=== PATIENT | male | born 1965 | race Caucasian/White ===

== ENCOUNTER 2020-02-22 11:45 | Emergency (ER) | payer BC ==
[2020-02-22] MEDS ORDERED: NORMAL SALINE 1000 ML 1,000 ML IV ONE (12:51)
[2020-02-22] MEDS ORDERED: DEXTROSE 5%-WATER 1000 ML 1,000 ML with SODIUM BICARBONATE 50 MEQ IV PRN ×2 (12:53)
[2020-02-22] MEDS ORDERED: ACTIVATED CHARCOAL 25 GM BOTTLE PO ONE (12:55)
[2020-02-22] MEDS ORDERED: DEXTROSE 5%-WATER 1000 ML 1,000 ML with SODIUM BICARBONATE 150 MEQ IV PRN ×2 (12:58)
--- NOTE | 2020-02-22 13:04 | ER Document Report ---
ED General - Related Data Home Medications: aspirin - General Chief Complaint: Hand Swelling Stated Complaint: RIGHT HAND SWELLING Time Seen by Provider: 02/22/20 12:40 Primary Care Provider: EL ARANA [Primary Care Provider] - Follow up as needed - HPI Notes: 54-year-old male presents initially with right hand pain. Patient states he has had several months of right hand pain, recently saw a doctor who believes it might be gout. Patient states that he has had multiple areas of joint pains over the past couple years. He states every couple months he will have pain in his shoulders, hips, hands, and ankles. All of these joints will become swollen and painful. He previously was on narcotic pain medication while he lived in [place], he has not taken any opioids since he has been in [place] since August. Instead, patient has been taking marked doses of aspirin. He states that in the past 6 days he has gone through 2 bottles of 325 mg aspirin. He typically takes 12 tabs at a time, usually about 4 times a day. He believes that he took 24 yesterday and over 30 the day before. He states he only took 6 today, consumed around 11 AM. He states that 3 to 4 days ago he had some ringing in his ears which prompted him to decrease his aspirin intake. He states that today is the first day his hand has felt good enough that he could drive himself to the emergency department. He denies nausea, vomiting or abdominal pain. He states that he has been urinating. He occasionally will use marijuana but it has been sometime since last use. He denies alcohol intake. He has a history of hypertension and diabetes. (CHE ZEPEDA) - Related Data Allergies/Adverse Reactions: ibuprofen Allergy (Verified 02/22/20 13:16) Past Medical History - General Information source: Patient - Social History Smoking Status: Current Every Day Smoker Family History: Reviewed & Not Pertinent Patient has homicidal ideation: No - Past Medical History Cardiac Medical History: Reports: Hx Hypertension Endocrine Medical History: Reports: Hx Diabetes Mellitus Type 2 Review of Systems - Review of Systems Constitutional: No symptoms reported EENT: See HPI Cardiovascular: No symptoms reported Respiratory: No symptoms reported Gastrointestinal: No symptoms reported Genitourinary: No symptoms reported Male Genitourinary: No symptoms reported Musculoskeletal: Joint pain, Joint swelling Skin: No symptoms reported Hematologic/Lymphatic: No symptoms reported Neurological/Psychological: No symptoms reported Physical Exam - General General appearance: Appears well, Alert In distress: None - HEENT Head: Normocephalic, Atraumatic Extraocular movements intact: Yes Pupils: PERRL Mucous membranes: Normal - Respiratory Breath sounds: Normal - Cardiovascular Rhythm: Regular Heart sounds: Normal auscultation - Abdominal Distension: No distension Tenderness: Nontender - Extremities General upper extremity: Normal ROM General lower extremity: Normal ROM - Neurological Neuro grossly intact: Yes Cognition: Normal Orientation: AAOx4 Speech: Normal Cranial nerves: Normal Cerebellar coordination: Normal Motor strength normal: LUE, RUE, LLE, RLE - Psychological Associated symptoms: Normal affect - Skin Skin Temperature: Warm - Vital signs Vitals: Temp Pulse Resp BP Pulse Ox 98.7 F 70 18 190/101 H 97 02/22/20 12:30 02/22/20 12:30 02/22/20 12:30 02/22/20 12:30 02/22/20 12:30 Course - Laboratory Result Diagrams: 02/22/20 13:18 02/22/20 13:18 - Diagnostic Test Radiology reviewed: Image reviewed, Reports reviewed - Re-evaluation Re-evalutation: 54-year-old male here with right hand pain/joint swelling. Based on his description of polyarthralgias, it sounds like he probably has rheumatoid arthritis rather than gout. However most importantly is the fact that he has been taking massive doses of aspirin over the past few days. States his maximal dosing has been 12 tabs of 325 mg 4 times a day, which equates to 15.6 g daily. Today he has only taken 1950 mg. He is alert, mentating appropriately, currently no signs of cerebral edema. Through the triage process, poison control was contacted and he was ordered a dose of activated charcoal given his recent ingestion. Will start bicarb infusion, will monitor electrolytes and ur inary pH closely. I am anticipating a metabolic acidosis. Initial level ordered and will continue to trend every 2 hours until peak. 02/22/20 14:15 Initial labs have resulted. He has normal pH on VBG, bicarb is only slightly low at 20. His creatinine is within normal limits. Additionally his salicylate level is less than 30 mg/dL. Feel that it is reasonable to keep patient on a bicarb and recheck a level in 2 hours, if the level decreases then potentially he may be going home, if increases admitted. Updated patient on this plan. 02/22/20 16:50 Patient signed out pending repeat salicylate level and BMP. (CHE ZEPEDA) - Vital Signs Vital signs: Temp Pulse Resp BP Pulse Ox 98.0 F 70 20 173/114 H 97 02/22/20 14:21 02/22/20 12:30 02/22/20 14:21 02/22/20 14:21 02/22/20 14:21 - Laboratory Laboratory results interpreted by me: 02/22/20 02/22/20 02/22/20 13:18 13:18 13:40 WBC 12.6 H RBC 4.21 L Hgb 13.0 L Plt Count 464 H Absolute Neuts (auto) 9.3 H VBG pCO2 33.4 L Chloride 108 H Carbon Dioxide 20 L AST 14 L Alkaline Phosphatase 142 H Acetaminophen < 10 L - EKG Interpretation by Me Additional EKG results interpreted by me: EKG is interpreted by me. Sinus rhythm, rate 74. Slight prolonged QRS at 104, slight prolonged QTC at 484. Nonspecific ST changes. (CHE ZEPEDA) Discharge - Discharge Clinical Impression: Unintentional poisoning by salicylate Qualifiers: Encounter type: initial encounter Qualified Code(s): T39.091A - Poisoning by salicylates, accidental (unintentional), initial encounter Disposition: OTHER Additional Instructions: Please discontinue use of aspirin. Please establish with a primary care doctor, you received contact information for Dr. Cruz who is a local PCP in the area. Return to the emergency department for any concerning worsening symptoms. Referrals: EL ARANA [Primary Care Provider] - Follow up as needed AXEL CRUZ MD [ACTIVE STAFF] - Follow up as needed
--- NOTE | 2020-02-22 13:29 | ER Document Report ---
ED Medical Screen (RME) - General Chief Complaint: Hand Swelling Stated Complaint: RIGHT HAND SWELLING Time Seen by Provider: 02/22/20 12:40 Primary Care Provider: EL ARANA [Primary Care Provider] - Follow up as needed - [facility] Notes: 02/22/20 13:29 54-year-old male to the emergency department with complaints of right hand swelling that is been going on for 1 week. He states that this is his gout flar eup and it is not really been getting better. He states he did not have any his usual indomethacin he has been taking quite a lot of aspirin every day. Today he is taking 6 325 mg tablets. Took those about 2 to 3 hours ago. Yesterday he took 24. The day before he took 36. He admits to ringing in his ears. Denies any nausea or vomiting. He states that he has had some yellowing of his skin. I did call poison control from triage and they suggested given his ringing in his ears that he be started on a bicarb drip at 250 mL's per hour. Also suggest giving patient 1 dose of activated charcoal since he last took aspirin 2 to 3 hours ago. I also updated my attending Dr. Cross about the patient. She is aware of the suggestions from by poison control. I asked charge for bed immediately. Patient was put into minor procedure for further evaluation by main side physician. I performed a brief medical screening exam on the patient determined that the patient needs further evaluation and management by main side provider. I have placed initial orders to help expedite care. - Related Data Allergies/Adverse Reactions: ibuprofen Allergy (Verified 02/22/20 13:16) Home Medications: aspirin Past Medical History - Past Medical History Cardiac Medical History: Reports: Hx Hypertension Endocrine Medical History: Reports: Hx Diabetes Mellitus Type 2 Past Surgical History: Reports: Hx Appendectomy Physical Exam - Vital signs Vitals: Temp Pulse Resp BP Pulse Ox 98.7 F 70 18 190/101 H 97 02/22/20 12:30 02/22/20 12:30 02/22/20 12:30 02/22/20 12:30 02/22/20 12:30 Course - Vital Signs Vital signs: Temp Pulse Resp BP Pulse Ox 98.7 F 70 18 190/101 H 97 02/22/20 12:30 02/22/20 12:30 02/22/20 12:30 02/22/20 12:30 02/22/20 12:30 Doctor's Discharge - Discharge Referrals: LOCALMD,NO [Primary Care Provider] - Follow up as needed
[2020-02-22 13:37] LABS: ABSOLUTE BASOPHILS # (AUTO) 0.1 10^3/uL (0.0-0.2); ABSOLUTE EOSINOPHILS # (AUTO) 0.2 10^3/uL (0.0-0.6); ABSOLUTE LYMPHOCYTES (AUTO) 2.2 10^3/uL (0.5-4.7); ABSOLUTE MONOCYTES (AUTO) 0.8 10^3/uL (0.1-1.4); ABSOLUTE NEUT (AUTO) 9.3 10^3/uL (1.7-8.2); BASOPHILS % (AUTO) 0.6 % (0-2); EOSINOPHILS % (AUTO) 1.5 % (0-6); HEMATOCRIT 38.5 % (37.9-51.0); LYMPHOCYTES % (AUTO) 17.7 % (13-45); MEAN CORPUSCULAR HEMOGLOBIN 30.9 pg (27.0-33.4); MEAN CORPUSCULAR HGB CONC 33.8 g/dL (32.0-36.0); MEAN CORPUSCULAR VOLUME 91 fl (80-97); MONOCYTES % (AUTO) 6.3 % (3-13); PLATELET COUNT 464 10^3/uL (150-450); RED BLOOD COUNT 4.21 10^6/uL (4.35-5.55); RED CELL DISTRIBUTION WIDTH 13.7 % (11.5-14.0); SEGMENTED NEUTROPHILS % (AUTO) 73.9 % (42-78); TOTAL CELLS COUNTED % (AUTO) 100 %; WHITE BLOOD COUNT 12.6 10^3/uL (4.0-10.5)
[2020-02-22 13:43] LABS: INTERNATIONAL RATION (INR) 0.98; PROTHROMBIN TIME 13.2 SEC (11.4-15.4)
[2020-02-22 13:44] LABS: PARTIAL THROMBOPLASTIN TIME 30.5 SEC (23.5-35.8)
[2020-02-22 13:54] LABS: APPEARANCE,URINE CLEAR; BILIRUBIN,URINE NEGATIVE (NEGATIVE); COLOR,URINE YELLOW; GLUCOSE, URINE NEGATIVE (NEGATIVE); KETONES,URINE NEGATIVE (NEGATIVE); LEUKOCYTE ESTERASE,URINE NEGATIVE (NEGATIVE); NITRITE,URINE NEGATIVE (NEGATIVE); PROTEIN,URINE NEGATIVE (NEGATIVE); URINE SPECIFIC GRAVITY 1.009; UROBILINOGEN,URINE NEGATIVE mg/dL (<2.0)
[2020-02-22 13:56] LABS: ALBUMIN 3.9 g/dL (3.5-5.0); ALKALINE PHOSPHATASE 142 U/L (38-126); ANION GAP 11 (5-19); ASPARTATE AMINO TRANSFERASE 14 U/L (17-59); BILIRUBIN,DIRECT 0.4 mg/dL (0.0-0.4); BILIRUBIN,TOTAL 0.4 mg/dL (0.2-1.3); BLOOD UREA NITROGEN 15 mg/dL (7-20); CALCIUM 9.3 mg/dL (8.4-10.2); CARBON DIOXIDE 20 mmol/L (22-30); CHLORIDE 108 mmol/L (98-107); GLUCOSE 97 mg/dL (75-110); POTASSIUM 4.7 mmol/L (3.6-5.0); SALICYLATE 12.8 mg/dL (2.0-20.0); TOTAL PROTEIN 7.8 g/dL (6.3-8.2)
[2020-02-22 13:57] LABS: ACETAMINOPHEN < 10 ug/mL (10-30)
[2020-02-22 13:57] LABS: VENOUS BLOOD HCO3 20.8 mmol/L (20-32); VENOUS BLOOD PCO2 33.4 mmHg (35-63); VENOUS BLOOD PH 7.41 (7.30-7.42)
--- NOTE | 2020-02-22 14:18 | RADIOLOGY REPORT (SQ) ---
EXAM DESCRIPTION: HAND RIGHT 2 VIEWS IMAGES COMPLETED DATE/TIME: 02/22/2020 2:08 pm REASON FOR STUDY: joint swelling COMPARISON: None. EXAM PARAMETERS: NUMBER OF VIEWS: Three views. TECHNIQUE: AP, lateral and oblique radiographic images acquired of the right hand. LIMITATIONS: None. FINDINGS: MINERALIZATION: Normal. BONES: No acute fracture or dislocation. Chronic changes involving the distal ulna. No worrisome cori ne lesions. JOINTS: Degenerative changes in the PIP joint of the 5th finger. SOFT TISSUES: No soft tissue swelling. No foreign body. OTHER: No other significant finding. IMPRESSION: CHRONIC CHANGES DESCRIBED. NO ACUTE FINDINGS. TECHNICAL DOCUMENTATION: JOB ID: [id number] 2010 [employer]- All Rights Reserved Reading location - IP/workstation name: [email or web address]
[2020-02-22 17:19] LABS: ANION GAP 9 (5-19); BLOOD UREA NITROGEN 15 mg/dL (7-20); CALCIUM 8.7 mg/dL (8.4-10.2); CARBON DIOXIDE 23 mmol/L (22-30); CHLORIDE 106 mmol/L (98-107); GLUCOSE 102 mg/dL (75-110); POTASSIUM 4.2 mmol/L (3.6-5.0)
[2020-02-22 19:13] VITALS: BP 175/121
--- NOTE | 2020-02-22 21:54 | EKG REPORT ---
SEVERITY:- ABNORMAL ECG - SINUS RHYTHM NONSPECIFIC T ABNORMALITIES, ANTERIOR LEADS BORDERLINE PROLONGED QT INTERVAL : Confirmed by: Romero Agustin 22-Feb-2020 21:53:55
== END 2020-02-22 19:00 | disposition other institution (70) ==
LOC: ER 11:45
DX: R22.31 Localized swelling, mass and lump, right upper limb (principal); T39.091A Poisoning by salicylates, accidental (unintentional), initial encounter; F17.200 Nicotine dependence, unspecified, uncomplicated; E11.9 Type 2 diabetes mellitus without complications; I10 Essential (primary) hypertension
CPT/HCPCS: 93005; 99285; 96365; 96366; 36415; 80307 ×2; 84550; 85025; 85610; 85730; 81005; 80053; 82803; 73120; 93010; J3490 ×2; J7060